=== PATIENT | male | born 1935 | race Caucasian/White ===

== ENCOUNTER → 2017-09-05 | Outpatient (CLI) | payer MEDICARE, OTHER ==
[~2017-09-05] MED LIST: ACET325; AMAN100 PO; ASPI81CH; ASPI81CH PO; ASPI81EC PO; CARBLEV25 PO; FISH1000; NAPR220; RASA1 PO; RASAGILINE PO; RXCLIN; VITAMENS; [UNRECOGNIZED DRUG - REMARK]
[2017-09-05 10:48] LABS: Source, Urine Clean Catch
[2017-09-05 12:12] LABS: Bilirubin, Urine Neg (Neg); Blood, Urine 1+ (Neg); Glucose Qualitative, Urine Neg (Neg); Ketones, Urine Neg (Neg); Leukocyte Esterase, Urine Neg (Neg); Nitrite, Urine Neg (Neg); Protein, Urine Neg (Neg); Urobilinogen, Urine NORM (Normal)
[2017-09-05 12:43] LABS: Appearance, Urine Clear (Clear); Color, Urine Yellow (P-Yellow)
[2017-09-05 12:45] LABS: Bacteria Not Seen /hpf; Red Blood Cells, Urine 0-2 /hpf (0-2); Squamous Epithelial Cells Few /hpf (Few); White Blood Cells, Urine 0-2 /hpf (0-5)
== END | disposition home or self-care (01) ==
LOC: LAB 09:50 → LAB SHORT 09:50
PROVIDERS: Psychiatry & Neurology Neurology
DX: R30.0 Dysuria (principal)
CPT/HCPCS: 81001

== ENCOUNTER 2018-06-26 20:19 | Emergency (ER) | payer MEDICARE, OTHER ==
[~2018-06-26] VITALS: Ht 172.7 cm; Wt 57.1 kg
[~2018-06-26 20:19] MED LIST changes: +Carbidopa-Levo1 EAC4 PO
[2018-06-26] MEDS ORDERED: ANASTIA15 GM TOP (21:07)
== END 2018-06-26 21:19 | disposition home or self-care (01) ==
LOC: ER 20:19
DX: M17.0 Bilateral primary osteoarthritis of knee (principal); F03.90 Unspecified dementia, unspecified severity, without behavioral disturbance, psychotic disturbance, mood disturbance, and anxiety; G20 Parkinson's disease; Z79.82 Long term (current) use of aspirin; Z79.899 Other long term (current) drug therapy; Z87.891 Personal history of nicotine dependence
CPT/HCPCS: 99283

== ENCOUNTER → 2020-09-15 | Outpatient (CLI) | payer MEDICARE ==
[~2020-09-15] MED LIST changes: +ANASTIA15 GM TOP
[2020-09-15 17:58] LABS: Source, Urine Voided
[2020-09-15 19:05] LABS: Appearance, Urine Hazy (Clear); Bilirubin, Urine Neg (Neg); Blood, Urine 3+ (Neg); Color, Urine Amber (P-Yellow); Glucose Qualitative, Urine Neg (Neg); Ketones, Urine 2+ (Neg); Leukocyte Esterase, Urine 3+ (Neg); Nitrite, Urine Neg (Neg); Protein, Urine 2+ (Neg); Specific Gravity, Urine 1.015 (1.003-1.022); Urobilinogen, Urine NORM (Normal)
[2020-09-15 19:15] LABS: Bacteria Many /hpf; Red Blood Cells, Urine 0-2 /hpf (0-2); Squamous Epithelial Cells Few /hpf (Few); White Blood Cells, Urine TNTC /hpf (0-5)
== END | disposition home or self-care (01) ==
LOC: LAB SHORT 16:45 → LAB 16:45
PROVIDERS: Family Medicine
DX: R30.9 Painful micturition, unspecified (principal)
CPT/HCPCS: 81001; 87077; 87086; 87186

== ENCOUNTER 2020-10-01 09:05 | Inpatient (IN) | payer OTHER ==
[~2020-10-01] VITALS: Ht 172.7 cm; Wt 59.0 kg
[2020-10-01 09:57] LABS: BASOPHILS ABSOLUTE AUTO 0.02 K/mm3 (0.00-0.23); BASOPHILS PERCENT AUTO 0 % (0-2); EOSINOPHILS PERCENT AUTO 0 % (0-6); Hematocrit 43.2 % (37.0-53.0); Hemoglobin 13.8 g/dL (13.5-17.5); IMMATURE GRAN ABSOLUTE AUTO 0.09 K/mm3 (0.00-0.10); IMMATURE GRAN PERCENT AUTO 1 % (0-1); LYMPHOCYTES ABSOLUTE AUTO 1.04 K/mm3 (0.84-5.20); LYMPHOCYTES PERCENT AUTO 8 % (21-46); MONOCYTES ABSOLUTE AUTO 0.63 K/mm3 (0.16-1.47); MONOCYTES PERCENT AUTO 5 % (4-13); Mean Corpuscular HGB 31.7 pg (26.0-34.0); Mean Corpuscular HGB Conc 31.9 g/dL (31.5-36.5); Mean Corpuscular Volume 99 fL (80-100); Mean Platelet Volume 10.1 fL (9.1-12.4); NEUTROPHILS ABSOLUTE AUTO 11.41 K/mm3 (1.96-9.15); NEUTROPHILS PERCENT AUTO 86 % (41-73); Platelet Count 279 K/mm3 (150-400); RDW Coefficient Variation 15.2 % (11.7-14.2); RDW Standard Deviation 55.5 fL (35.1-46.3); Red Blood Cell Count 4.36 M/mm3 (4.30-5.90); White Blood Cell Count 13.19 K/mm3 (4.00-11.30)
[2020-10-01] MEDS ORDERED: [UNRECOGNIZED DRUG - OTHER] PO (13:00)
[2020-10-01 14:26] LABS: Alanine Aminotransfer (ALT/SGP 13 U/L (12-78); Albumin, Blood 2.6 g/dL (3.4-5.0); Albumin/Globulin Ratio 0.9 (0.8-1.8); Alk Phos 77 U/L (50-136); Anion Gap 6 mmol/L (6-16); Aspartate Aminotrans (AST/SGOT 17 U/L (12-37); Bilirubin, Total 1.2 mg/dL (0.1-1.0); Blood Urea Nitrogen 18 mg/dL (8-24); Bun/Creatinine Ratio 22.6 (12.0-20.0); CO2, Blood 29 mmol/L (21-32); Calcium, Blood 8.7 mg/dL (8.5-10.1); Chloride, Blood 109 mmol/L (98-108); Globulin, Blood 2.9 g/dL (2.2-4.0); Glomerular Filtration Rate >60 (60-); Glucose, Blood 66 mg/dL (70-99); Potassium, Blood 3.7 mmol/L (3.5-5.5); Sodium, Blood 144 mmol/L (136-145); Total Protein, Blood 5.5 g/dL (6.4-8.2)
--- NOTE | 2020-10-01 14:51 | NUR ---
PT SIGNIFICANT OTHER AT BEDSIDE LEGAL COMPLAINT INVESTIGATIONS OFFICER. History, Chart, Medications and Allergies reviewed before start of procedure.Patient'S COMPLAINT INVESTIGATIONS OFFICER confirms NPO status and agrees with scheduled surgery. Pre-Op teaching done. Pt COMPLAINT INVESTIGATIONS OFFICER verbalizes understanding.
--- NOTE | 2020-10-01 16:29 | NUR ---
10/01/20 1629 FOX,[place] PTS BLOOD GLUCOSE CHECKED PER DR IVAN ORDERS AT 1556 , RESULTS 90. DR IVAN MADE AWARE. NO NEW ORDERS
--- NOTE | 2020-10-01 17:04 | NUR ---
V/O PER DR IVAN IS THAT PT WAS NON VERBAL BEFORE SURGERY AND THAT THIS IS BASELINE OK TO GO TO SURGICAL FLOOR
--- NOTE | 2020-10-01 18:17 | NUR ---
SHIFT SUMMARY: POD 0 LEFT BUTTOCKS I&D PATIENT RESPONDS TO PAINFUL STIMULI AT THIS TIME. VS ARE WNL AND IS ON 2L OXYGEN NC. PATIENT DENIES PAIN AT THIS TIME. LEFT BUTTOCKS HAS GAUZE PACKED IN WITH A MEPILEX TO COVER IT. PATIENT HAS BRISK CAP REFILL ON THE TOES AND HAS STRONG PEDAL PULSES. 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 HE IS ALSO INCONTINENT BUT ATTENDS IN PLACE. IS AT BEDSIDE. CALL LIGHT WITHIN REACH. BOTH ARE WATCHING TV AT THIS TIME. THE PLAN IS TO HAVE PAIN MANAGEMENT AND STAY HYDRATED WITH IV FLUIDS WELL RECIEVE ABX.
--- NOTE | 2020-10-01 18:27 | NUR ---
PATIENT ARRIVED ONTO THE UNIT TODAY 10/01/20 AT 1645. PATIENT WAS RESPONDING TO PAINFUL STIMULI. VS ARE WNL AND IS ON 2L OXYGEN NC. THE LEFT BUTTOCKS HAS GAUZE IMPACTED WITH MEPILEX TO COVER. IT IS C/D/I AT THIS TIME. PATIENT IS PARAPELGIC AND IS HARD TO MOVE WITH CONTRACTIONS IN ARMS AND LEGS. PILLOW IN BETWEEN THE KNEES. PULSES IN ALL EXTREMITIES ARE STRONG WITH BRISK CAP REFILL. AT BEDSIDE. CALL LIGHT WITHIN REACH.
[2020-10-02 04:17] LABS: BASOPHILS ABSOLUTE AUTO 0.02 K/mm3 (0.00-0.23); BASOPHILS PERCENT AUTO 0 % (0-2); EOSINOPHILS ABSOLUTE AUTO 0.02 K/mm3 (0.00-0.68); EOSINOPHILS PERCENT AUTO 0 % (0-6); Hematocrit 36.7 % (37.0-53.0); IMMATURE GRAN ABSOLUTE AUTO 0.04 K/mm3 (0.00-0.10); IMMATURE GRAN PERCENT AUTO 0 % (0-1); LYMPHOCYTES ABSOLUTE AUTO 1.01 K/mm3 (0.84-5.20); LYMPHOCYTES PERCENT AUTO 10 % (21-46); MONOCYTES ABSOLUTE AUTO 0.56 K/mm3 (0.16-1.47); MONOCYTES PERCENT AUTO 6 % (4-13); Mean Corpuscular HGB 31.3 pg (26.0-34.0); Mean Corpuscular HGB Conc 32.7 g/dL (31.5-36.5); Mean Corpuscular Volume 96 fL (80-100); Mean Platelet Volume 9.7 fL (9.1-12.4); NEUTROPHILS ABSOLUTE AUTO 8.44 K/mm3 (1.96-9.15); NEUTROPHILS PERCENT AUTO 84 % (41-73); Platelet Count 254 K/mm3 (150-400); RDW Coefficient Variation 15.3 % (11.7-14.2); RDW Standard Deviation 53.8 fL (35.1-46.3); Red Blood Cell Count 3.83 M/mm3 (4.30-5.90); White Blood Cell Count 10.09 K/mm3 (4.00-11.30)
[2020-10-02 04:53] LABS: Anion Gap 4 mmol/L (6-16); Blood Urea Nitrogen 16 mg/dL (8-24); Bun/Creatinine Ratio 21.3 (12.0-20.0); CO2, Blood 28 mmol/L (21-32); Calcium, Blood 8.4 mg/dL (8.5-10.1); Chloride, Blood 110 mmol/L (98-108); Creatinine, Blood 0.75 mg/dL (0.60-1.20); Glomerular Filtration Rate >60 (60-); Glucose, Blood 102 mg/dL (70-99); Magnesium, Blood 2.2 mg/dL (1.6-2.4); Potassium, Blood 3.7 mmol/L (3.5-5.5); Sodium, Blood 142 mmol/L (136-145)
--- NOTE | 2020-10-02 08:10 | NUR ---
SUMMARY PT CONTINUES NON VERBAL WITH STAFF.WASHED ROBERT AREA AND PLACED CONDOM CATH IN ATTEMPT TO OBTAIN UA PER ORDERS PT IS INCONTINENT. SCANT DRNG VISIBLE UNDER DRESSING AT I/D SITE. REMAINS AT BEDSIDE.SUPPORTIVE AND HELPFUL WITH PT.
[2020-10-02 10:53] LABS: Source, Urine Catheter
[2020-10-02 10:57] LABS: Bilirubin, Urine Neg (Neg); Blood, Urine 1+ (Neg); Glucose Qualitative, Urine Neg (Neg); Ketones, Urine Neg (Neg); Leukocyte Esterase, Urine Neg (Neg); Nitrite, Urine Neg (Neg); Protein, Urine 2+ (Neg); Urobilinogen, Urine 2+ (Normal)
[2020-10-02 11:04] LABS: Appearance, Urine Hazy (Clear); Color, Urine Yellow (P-Yellow)
[2020-10-02 11:05] LABS: Bacteria Rare /hpf; Red Blood Cells, Urine 0-2 /hpf (0-2); Squamous Epithelial Cells Few /hpf (Few); White Blood Cells, Urine 0-2 /hpf (0-5)
--- NOTE | 2020-10-02 15:38 | NUR ---
Met with pt and his S/O Cris. She states she has been caring for him since 2004, when he first showed s/s o parkinsons. They have been together for 45 years, according to Cris. It appears she has taken good care of him, but his body is beginning to fail with Parkinsons. He appears severely malnourished, related to his liquid diet, which is recently all he could tolerate. He is bed/wheelchair bound. This has caused many wounds to coccyx and sacral area. He is unable to speak, but does appear to be paying attention, as he stopped shaking Cris's arm around when she and I are discussing plan for discharge. Cris has chosen [facility]. Papers being faxed to them now.
--- NOTE | 2020-10-02 16:33 | NUR ---
DISCHARGE SUMMARY PATIENT LETHARGIC THROUGHOUT SHIFT. ONLY VERBALLY RESPONDS WITH SINGLE WORDS TO SIGNIFICANT OTHER. BEDREST. SEVERE MALNUTRITION AND CONTRACTURES. MULTIPLE DECUBITIS WOUNDS TO BUTTOCKS AND HIPS. PALLIATIVE CARE WAS CONSULTED. THE DECISION WAS MADE BY FAMILY TO TAKE HIM HOME ON HOSPICE CARE. DISCHARGE TO HOSPICE ORDERS WERE OBTAINED. DISCHARGE EDUCATION GIVEN TO SIGNIFICANT OTHER ON WOUND CARE AND HOSPICE. PATIENT LEFT UNIT IN WHEELCHAIR FOR HOME AT 1620.
== END 2020-10-02 16:00 | disposition hospice, home (50) | DRG 592 ==
LOC: ER 09:05 → ERHOLD 12:48 → SURS 16:51
PROVIDERS: Emergency Medicine; Surgery; ADMIT Internal Medicine
PROC: 0HB6XZZ Excision of Back Skin, External Approach (ICD-10-PCS; principal; 2020-10-01 19:15)
DX: L89.154 Pressure ulcer of sacral region, stage 4 (principal); E43 Unspecified severe protein-calorie malnutrition; R64 Cachexia; Z68.1 Body mass index [BMI] 19.9 or less, adult; G20 Parkinson's disease; F02.80 Dementia in other diseases classified elsewhere, unspecified severity, without behavioral disturbance, psychotic disturbance, mood disturbance, and anxiety; E78.5 Hyperlipidemia, unspecified; I10 Essential (primary) hypertension; Z87.891 Personal history of nicotine dependence; Z96.642 Presence of left artificial hip joint; K59.00 Constipation, unspecified; Z98.890 Other specified postprocedural states; Z79.82 Long term (current) use of aspirin; Z79.899 Other long term (current) drug therapy
CPT/HCPCS: 36415; 73502; 80048; 80053; 81001; 82947; 83735; 85025; 85651; 86140; 87077; 87086; 87186; 93005; 93010; 99284; J2370; J2704; J3480; J7042; J7120